=== PATIENT | female | born 1945 | race Caucasian/White ===

== ENCOUNTER 2016-10-30 13:50 | Observation (INO) | payer OTHER ==
--- NOTE | ~2016-10-30 | EKG ---
PATIENT: NANNETTE CARCAMO UNIT #: [id number] Ventricular Rate: 75 BPM Atrial Rate: 75 BPM P-R Interval: 144 ms QRS Duration: 78 ms Q-T Interval: 422 ms QTC Calculation(Bezet): 471 ms P [place]: 49 degrees Calculated R [place]: -25 degrees Calculated T [place]: 46 degrees Diagnosis Line: Normal sinus rhythm Diagnosis Line: Inferior infarct , age undetermined Diagnosis Line: Abnormal ECG Diagnosis Line: When compared with ECG of 31-OCT-2016 09:46, Diagnosis Line: (unconfirmed) Diagnosis Line: Inferior infarct is now Present Diagnosis Line: Confirmed by DEMARCUS MINER MD ([id number]) on Diagnosis Line: 11/03/2016 1:12:00 PM INTERPRETING MD: JUAN
--- NOTE | ~2016-10-30 | CO ---
Unit #: [id number] #: [id number] Patient: NANNETTE CARCAMO [id number] [facility]. [address] [place], [place] [address] [id number] I MR#: [id number] NAME: NANNETTE CARCAMO. ROOM: 563 Age: 71 Sex: F Admission Date: 10/30/2016 : 1945 Attending Physician: Alayna Sauer M.D. Primary Care Physician: Lissette Primary Care Physician Consultation Date: 10/31/2016 CONSULTATION REPORT PRIMARY CARE PHYSICIAN Dr. Cervantes. REASON FOR CONSULTATION Chest pain. HISTORY OF PRESENT ILLNESS This is a 71-year-old white female who has a history of coronary artery disease. Her last cath back in 2012 showed some nonobstructive CAD. Her ejection fraction was 60%, has hypertension, she is a diabetic, hyperlipidemia, who was originally brought into the emergency room because of having high blood sugars. The patient said she had been taking her medication consistently. It was glyburide 2 mg daily. Her blood sugars have stayed in the 300s and sometimes as high as 430. She was concerned so she came to the emergency room for further evaluation. She also complained of having some left upper anterior chest wall pain associated with the poorly controlled blood sugar. She described it as being sharp shooting in nature. She said she has periods of dizziness but denies any diaphoresis or shortness of breath. She has not had any cough, fever or chills, no abdominal or back pain. She denies any presyncope or syncopal episodes, paroxysmal nocturnal dyspnea or orthopnea. Cardiology was consulted to evaluate the patient's chest pain and she was admitted with poorly controlled diabetes mellitus. On interviewing the patient, she states that she has been having this intermittent chest pain off and on. She said that usually it starts in the left anterior chest wall but can radiate up to the neck/jaw. She does have some associated symptoms and shortness of breath but no distress. She denies any dizziness and no palpitations, denies any increased lower extremity edema. PAST MEDICAL HISTORY 1. Coronary artery disease. Her last cardiac cath in 2012 revealed 70% to 75% stenosis in the high first marginal branch and the ramus intermedius branch of the left circumflex coronary artery. Ejection fraction 60%. Patient was suggested to continue on medical management but she could have a stent placed if she continued to have chest pain. 2. Hypertension. 3. Diabetes mellitus type 2. 4. Hyperlipidemia. 5. Bipolar disorder. 6. History of depression and anxiety. Unit #: [id number] #: [id number] Patient: NANNETTE CARCAMO. EGS 2014 showed some gastritis, also found a large diverticulum of the distal esophagus. PAST SURGICAL HISTORY 1. Total abdominal hysterectomy. 2. Cataract surgery. 3. Left total hip surgery. HOME MEDICATIONS 1. Atorvastatin 10 mg p.o. daily. 2. Carvedilol 6.25 mg p.o. daily. 3. Duloxetine 60 mg p.o. daily. 4. Amaryl 2 mg p.o. daily. 5. Boniva 150 mg p.o. monthly. 6. Iron 325 mg p.o. daily. 7. Multivitamin one tablet daily. 8. Namenda 10 mg p.o. b.i.d. 9. Pantoprazole 40 mg p.o. daily. 10. Potassium chloride 10 mEq p.o. daily. ALLERGIES IV contrast dye, any iodine-containing products. SOCIAL HISTORY The patient has been a lifelong nonsmoker, no alcohol or illicit drug abuse. FAMILY HISTORY Noted to have coronary artery disease in her immediate family members. REVIEW OF SYSTEMS See details in HPI. PHYSICAL EXAMINATION GENERAL: On exam Ms. Carcamo is a 71-year-old female in no acute respiratory distress. She is awake, alert and oriented. VITAL SIGNS: Blood pressure is 125/69, heart rate is 74, respirations 18, temperature 98.0, O2 sats 96% on room air. HEART: S1, S2, regular rate and rhythm. No clicks, murmur or rubs. LUNGS: Diminished, otherwise clear. ABDOMEN: Soft, nontender. Positive bowel sounds present. No hepatosplenomegaly. EXTREMITIES: Pedal pulses are palpable. No pedal edema. DIAGNOSTIC STUDIES LABORATORY DATA: Glucose is 190, on admission it was 306, BUN 10, creatinine 0.9, eGFR is 65.3, sodium 138, potassium 4.0, chloride 105, CO2 23, calcium is 8.9, total protein 6.6, albumin 3.2, total bilirubin is 0.6, AST is 54, ALT 33, alkaline phosphatase is 153. WBCs 7.6, hemoglobin 13.7, hematocrit 42.2 and platelets 147. Initial cardiac enzymes: CK-MB is less than 1.0, troponin less than 0.05. Repeat cardiac enzymes: CK total is 34 and troponin less than 0.02, CK total is 33 and troponin less than 0.03. BNP is 39. Hemoglobin A1C is 8.0. INR is 1.0. Urinalysis 2+ leukocyte esterase, greater than 1000 glucose and 1.0 urobilinogen and 10 to 25 WBCs, 2+ bacteria. Urine culture pending. IMAGING: Chest x-ray shows no acute findings and no active disease. Unit #: [id number] #: [id number] Patient: NANNETTE CARCAMO CARDIOVASCULAR: EKG shows normal sinus rhythm with ventricular rate 80 beats per minute, left axis deviation. Q wave noted in inferior leads. Poor R-wave progression. IMPRESSION 1. Chest pain, history of coronary artery disease. Last cardiac cath 2012 showed a 70% stenosis in the ramus and at the origin. The left main, LAD and RCA were essentially normal with ejection fraction of 60%. 2. Hypertension. 3. Poorly controlled diabetes mellitus type 2. 4. Hyperlipidemia. 5. Reformed smoker. 6. Gastroesophageal reflux disease. PLAN 1. Cardiology consult to assist with evaluating the patient's chest pain. On interview and exam it seems that she is having some unstable angina. At this point since it has been four years since her last cardiac cath and it was mentioned that she eventually may need an angioplasty or stenting they would recommend for a heart catheterization to further evaluate for ischemic heart disease. 2. Will keep the patient on therapeutic dose of Lovenox 1 mg/kg subcu b.i.d. along with an aspirin 325 mg STAT and also nitrate, nitroglycerin paste 1 inch t.i.d. 3. Continue the patient on her Lipitor but increase it from 10 to 20 mg daily. 4. Obtain a fasting lipid profile and TSH and evaluate. 5. Patient does have an allergy to IV contrast. I will premedicate for the heart catheterization. 6. Discussed with the patient the risks and benefits of a heart catheterization which include a risk of bleeding, myocardial infarction, stroke and even . Patient verbalized understanding and agrees to proceed. 7. Continue with pre-cath orders. 8. Hospitalist is managing her poorly controlled diabetes mellitus. 9. On exam there are no signs or symptoms of acute congestive heart failure. 10. Further recommendations pending per Dr. Serrano. Thank you very much for allowing us to assist in her care. Dictated by... Michelle Padilla A.P.R.N. for Maritza Ye/fabiana TD: 10/31/2016 22:46 JOB #: [id number] Unit #: [id number] #: [id number] Patient: NANNETTE CARCAMO CONSULTATION REPORT Page 1 of 1 X Michelle Padilla APRN CONSULTATION REPORT
--- NOTE | ~2016-10-30 | CR72 ---
[facility] A Service of [facility] & [facility] RADIOLOGY TEXT RESULTS PATIENT: NANNETTE CARCAMO LOCATION: [place] [address]- : [birth year] UNIT #: [id number] AGE: [address]: Alayna Sauer MD SEX: F ORDER DR: [id number] [facility] [address] [place], [place] [address] [id number] I MR#: [id number] #: [id number] NAME: NANNETTE CARCAMO. : 1945 SEX: F STUDY DATE/TIME: 10/30/2016 15:20 UNIT: [facility] ROOM: [facility] STUDY DESCRIPTION: CR Chest Single View Portable Attending Physician: Alayna Sauer M.D. Ordering Physician: [facility] Douglas Cole Primary Care Physician: Primary Care Physician No MEDICAL IMAGING REPORT This report is preliminary unless electronic signature is present EXAM Portable chest HISTORY Chest pain for 2 weeks. FINDINGS The cardiac size and pulmonary vascularity are normal. No infiltrates or effusions. Old healed right upper rib fractures. Mild hypertrophic spurring upper and lower thoracic spine. IMPRESSION No acute findings and no active disease. Dictated by... Christoph Pedersen M.D. THIS IS AN ELECTRONICALLY VERIFIED REPORT Christoph Pedersen M.D. at 10/31/2016 11:10 PM DFL/psc TD: 10/30/2016 17:00 JOB #: [id number] MEDICAL IMAGING REPORT Page 1 of 1 COPY
--- NOTE | ~2016-10-30 | EKG ---
PATIENT: NANNETTE CARCAMO UNIT #: [id number] Ventricular Rate: 80 BPM Atrial Rate: 80 BPM P-R Interval: 114 ms QRS Duration: 70 ms Q-T Interval: 424 ms QTC Calculation(Bezet): 489 ms P [place]: 3 degrees Calculated R [place]: -40 degrees Calculated T [place]: 57 degrees Diagnosis Line: Normal sinus rhythm Diagnosis Line: Left axis deviation Diagnosis Line: Abnormal ECG Diagnosis Line: When compared with ECG of 30-OCT-2016 15:11, Diagnosis Line: (unconfirmed) Diagnosis Line: No significant change was found Diagnosis Line: Confirmed by BERNARD MONTANEZ MD ([id number]) on Diagnosis Line: 11/02/2016 8:44:04 AM INTERPRETING MD: TARIK NEWELL
--- NOTE | ~2016-10-30 | EKG ---
PATIENT: NANNETTE CARCAMO UNIT #: [id number] Ventricular Rate: 72 BPM Atrial Rate: 72 BPM P-R Interval: 146 ms QRS Duration: 78 ms Q-T Interval: 426 ms QTC Calculation(Bezet): 466 ms P [place]: 52 degrees Calculated R [place]: -35 degrees Calculated T [place]: 56 degrees Diagnosis Line: Normal sinus rhythm Diagnosis Line: Left axis deviation Diagnosis Line: Abnormal ECG Diagnosis Line: When compared with ECG of 28-DEC-2013 14:56, Diagnosis Line: No significant change was found Diagnosis Line: Confirmed by BERNARD MONTANEZ MD ([id number]) on Diagnosis Line: 11/02/2016 8:43:18 AM INTERPRETING MD: TARKI NEWELL
--- NOTE | ~2016-10-30 | HP ---
Unit #: [id number] #: [id number] Patient: NANNETTE CARCAMO [id number] [address] [address] [id number] I MR#: [id number] NAME: NANNETTE CARCAMO. ROOM: 96257 Age: 71 Sex: F Admission Date: 10/30/2016 : 1945 Attending Physician: Galina Lay M.D. Primary Care Physician: No Primary Care Physician HISTORY AND PHYSICAL CHIEF COMPLAINT High blood sugars. HISTORY OF PRESENT ILLNESS The patient is a 71-year-old female with history of diabetes mellitus, hypertension, brought to the emergency room complaining of high blood sugar. The patient stated the patient has been taking her medication, Glimepiride 2 mg daily. However, the blood sugar remains high. It started with 300 and now it is 430 today and that prompted her to come to the emergency room. The patient denies any change in the medications. The patient also complains of left upper chest pain associated with uncontrolled blood sugar. The pain is mainly sharp in nature, is intermittent and is not constant. She said it is nonradiating. The patient also complains of dizziness and denies any diaphoresis or shortness of breath. The patient denies any cough or abdominal pain. PAST MEDICAL HISTORY History of hypertension, diabetes, depression, bipolar disorder, dementia, hyperlipidemia, coronary artery disease status post PCI with 70 to 75% of the first marginal branch of the ramus intermedius branch of the left circumflex being treated medically. PAST SURGICAL HISTORY Total abdominal hysterectomy, cataract surgery and left total hip surgery. SOCIAL HISTORY The patient is living with her granddaughter and son, lifelong smoker, does not drink alcohol. FAMILY HISTORY Positive for coronary artery disease. ALLERGIES IV dye. HOME MEDICATION 1. Lipitor. 2. Calcium. 3. Magnesium. 4. Coreg. 5. Glimepiride. 6. Iron. 7. Multivitamins. 8. Namenda. Unit #: [id number] #: [id number] Patient: NANNETTE CARCAMO 9. KCl. 10. Iron. 11. Protonix. REVIEW OF SYSTEMS A 14-point review of systems performed and only pertinent positive findings are described above. Remaining are negative. PHYSICAL EXAMINATION GENERAL APPEARANCE: The patient is lying on a bed not in acute distress. VITAL SIGNS: Temperature 97.9. Pulse 82. Respiratory rate 16. Blood pressure 111/62. Sating 99% at room air. HEENT: Head: Atraumatic, normocephalic. ENT: Pupils equal, round, reacting to light and accommodation. Extraocular movements are intact. NECK: Supple. LUNGS: Decreased air entry at the bases. HEART: Regular rate and rhythm. Positive for murmur. ABDOMEN: Soft. Positive bowel sounds. EXTREMITIES: No cyanosis. No clubbing. NEUROLOGIC: Alert, awake, oriented. No gross focal motor deficit. DIAGNOSTIC STUDIES LABORATORY: pH 7.55, pCO2 25, pO2 98, bicarb 22, sating 97.8. Glucose 306, BUN 10, creatinine 0.9, sodium 132, potassium 4.2, chloride 101, bicarb 22, calcium 9.2, total protein 6.6, albumin 3.2, AST 54, ALT 33, alkaline phosphatase 153. BNP 39. Beta hydroxybutyrate 0.09. INR is one. Troponin less than 0.05. WBC 7.6, hemoglobin 14.3, hematocrit 43.7, platelets 152. CARDIOVASCULAR: EKG shows normal sinus rhythm with a left axis deviation. ASSESSMENT 1. Uncontrolled diabetes mellitus. 2. Chest pain. 3. Hypertension. PLAN To admit the patient to observation with telemetry. The patient will have serial troponins to rule out ischemia and Cardiology consult with Dr. Serrano, has seen in the past. Continue the sliding scale, check the hemoglobin A1c and continue with the glimepiride and might add another agent depending on the blood sugars and hemoglobin A1C. Repeat the labs again in the morning and further recommendations will follow. Dictated by Maritza Nair TD: 10/30/2016 17:49 JOB #: [id number] Unit #: [id number] #: [id number] Patient: NANNETTE CARCAMO HISTORY AND PHYSICAL Page 1 of 1 X X HISTORY AND PHYSICAL
--- NOTE | ~2016-10-30 | DS ---
Unit #: [id number] #: [id number] Patient: NANNETTE CARCAMO [id number] [address] [address] [id number] I MR#: [id number] NAME: NANNETTE CARCAMO ROOM: 563 Age: 71 Sex: F Admission Date: 10/30/2016 : 1945 Discharge Date: Attending Physician: Alayna Sauer M.D. Primary Care Physician: No Primary Care Physician DISCHARGE SUMMARY DISCHARGE DIAGNOSES 1. Unstable angina, status post cardiac cath, on medical management. 2. Diabetes mellitus type 2, uncontrolled. 3. Hypertension, uncontrolled. 4. History of bipolar. 5. Dementia. 6. Hyperlipidemia. 7. Coronary artery disease, status post (1) with 70% to 75% of first marginal branch of ramus treated medically in the past. CONSULTATION Dr. Hebert. PROCEDURE Cardiac cath. DIAGNOSTIC STUDIES LABORATORY: Glucose 212. Troponins negative. Creatinine 0.8. Hemoglobin normal. Urine cultures normal. TSH 1.53. LDL 86. IMAGING: Chest x-ray normal. CARDIOVASCULAR: EKG shows normal sinus rhythm. ALLERGIES Iodinated contrast dye. DISCHARGE MEDICATIONS 1. Cymbalta 60 p.o. daily. 2. Namenda 10 p.o. b.i.d. 3. Lipitor 20 daily. 4. Iron 325 daily. 5. Boniva 150 daily. 6. Multivitamin one tablet daily. 7. Aspirin 81 daily. 8. Protonix 40 daily. 9. Amaryl 2 mg p.o. daily. 10. Imdur ER 30 daily. HOSPITALIZATION COURSE A 71 year old admitted because of chest pain. Unstable angina: Patient is seen by Dr. Hebert. Patient had cardiac cath which shows 60% stenosis ramus origin obstruction with normal ejection Unit #: [id number] #: [id number] Patient: NANNETTE CARCAMO fraction. Patient will continue with aspirin and Lipitor. Medical management only. Diabetes mellitus 2: Uncontrolled. Patient will receive Levemir. She will continue with Amaryl at home. Hypertension: Uncontrolled. Continue with Imdur. History of smoking: Advised to quit. DISPOSITION Discharge home. FOLLOWUP 1. Follow with family physician in one week time. 2. Follow with Dr. Serrano on December 23, 2016 at 11 a.m. Apparently, patient's son is not allowing her to come back to his home. student worker is on case and currently she is homeless. I will discharge her once prison has been arranged. Dictated by... Alayna Sauer M.D. Robert TD: 11/02/2016 14:05 JOB #: [id number] DISCHARGE SUMMARY Page 1 of 1 X Alayna Sauer MD X DISCHARGE SUMMARY
[~2016-10-30 13:50] MED LIST: ACETAMINOPHEN PO; ALPRAZOLAM PO; AMARYL2 MG PO; AMBIEN PO; ARICEPT PO; ASPIRIN EC81 M1 PO; ASPIRIN PO; ASPIRIN325 M1 PO; ASPIRIN81 M2 PO; ASPIRIN81 MG PO; ATARAX PO; BACTROBAN22 GM TP; BENADRYL25 M1 PO; CARVEDILOL3.125 MG PO; COLACE PO; COMPAZINE5 MG PO; COREG PO; COREG3.125 MG PO; CYMBALTA; CYMBALTA PO; DONEPEZIL HCL10 MG PO; DULOXETINE HCL30 MG PO; DYAZIDE 37.5/251 CAP PO; DYRENIUM100 MG; FETZIMA40 MG PO; FIORICET 50-321 EACH PO; FLEXERIL10 M1 PO; FLEXERIL10 MG PO; GLIMEPIRIDE2 MG PO; GLUCOPHAGE XR500 MG PO; GLUCOPHAGE500 M1 PO; IBUPROFEN800 MG PO; K-LOR20 MEQ PO; LAMICTAL PO; LAMOTRIGINE200 MG PO; LANSOPRAZOLE30 M2 PO; LISINOPRIL10 MG PO; METFORMIN HCL500 M1 PO; METFORMIN PO; MICRO-K10 MEQ PO; MILK OF MAGNESIA PO; MULTIPLE VITAMI1 T11 PO; MULTIPLE VITAMI1 T13 PO; NAMENDA10 MG PO; NAMENDA5 MG PO; NAPROXEN PO; NEXIUM PO; NITROGLYGERIN0.4 MG SL; NITROSTAT0.4 MG SL; OLANZAPINE10 MG PO; OLANZAPINE20 MG PO; OLANZAPINE5 MG PO; ORUDIS75 M1 PO; PATIENT'S PHARMACY; PEPCID40 MG PO; PERCOCET 5-3251 TAB PO; PHENERGAN PO; POTASSIUM CHLO20 ME1 PO; PREDNISONE50 MG PO; PRISTIQ PO; PRISTIQ100 MG PO; PROMETHAZINE HC25 MG PO; REGLAN PO; SIMVASTATIN20 MG PO; TOPAMAX PO; VICODIN 5/1 TAB 5/50 PO; VITAMIN B 12 PO; VITAMIN B-12250 MCG PO; VITAMIN D-32000 UNI2 PO; VITAMIN D50000 UNIT PO; VOLTAREN50 MG PO; VOLTAREN75 MG PO; XANAX XR PO; ZANTAC PO; ZESTRIL10 M1 PO; ZOCOR PO; ZOCOR20 MG PO; ZOFRAN PO; ZYPREXA PO; ZYPREXA10 MG PO; ZYPREXA20 MG PO; ZYRTEC PO
[2016-10-30 15:40] LABS: BASOPHIL% 0.6 % (0-2.5); EOSINOPHIL# 0.1 X10e3 (0-0.7); EOSINOPHIL% 1.3 % (0.0-7.0); HEMATOCRIT 43.7 % (35.0-45.0); HEMOGLOBIN 14.3 gm/dL (12.0-16.0); MEAN CELL VOLUME 87.8 FL (83-96); MEAN CORPUSCULAR HEMOGLOBIN 28.7 PG (28-34); MEAN CORPUSCULAR HGB CONC 32.7 g/dL (30-36); MEAN PLATELET VOLUME 9.5 FL (6.5-11.5); MONOCYTE# 0.5 X10e3 (0-1.0); MONOCYTE% 7.2 % (3.0-12.0); NEUTROPHIL# 4.8 X10e3 (1.5-7.1); NEUTROPHIL% 63.9 % (40-75); PLATELET COUNT 152 X10e3 (140-420); RED BLOOD COUNT 4.98 X10e (3.90-5.30); WHITE BLOOD COUNT 7.6 X10e3 (4.0-10.5)
[2016-10-30 15:42] LABS: DIFF IND NO
[2016-10-30 15:54] LABS: ALBUMIN SERUM 3.2 g/dL (3.5-5.0); BETA HYDROXYBUTYRATE 0.09 MMOL/L (0.02-0.27); BILIRUBIN, DIRECT 0.2 mg/dL (0.0-0.2); BILIRUBIN,INDIRECT 0.4 mg/dL (0.0-0.9); BILIRUBIN,TOTAL 0.6 mg/dL (0.2-2.0); BUN/CREATININE RATIO 11.11; CALCIUM SERUM 9.2 mg/dL (8.4-10.2); CREATININE SERUM 0.9 mg/dL (0.6-1.4); GLOM FILT RATE Estimated 65.3 mL/min (>60); POTASSIUM 4.2 mmol/L (3.5-5.1); PROTEIN TOTAL SERUM 6.6 g/dL (6.0-8.3)
[2016-10-30 15:57] LABS: PARTIAL THROMBOPLASTIN TIME 25.5 SECONDS (23.5-31.3); PROTHROMBIN TIME (PATIENT) 10.7 SECONDS (9.6-11.5)
[2016-10-30 16:15] LABS: ARTERIAL BLD GAS O2 SATURATION 97.8 % (90.0-100.0); ARTERIAL BLOOD GAS ART SITE RIGHT BRACHIAL; ARTERIAL BLOOD GAS CARBOXY HB 0.7 %sat (0.0-9.0); ARTERIAL BLOOD GAS HCO3 22.6 mmol/L; ARTERIAL BLOOD GAS MET HB 0.5 %sat (0.0-2.0); ARTERIAL BLOOD GAS PCO2 25.5 mmHg (35.0-45.0); ARTERIAL BLOOD GAS pH 7.555 (7.350-7.450); ARTERIAL DRAW? YES
[2016-10-30 16:25] LABS: POC - CKMB <1.0 ng/mL (0.0-7.9); POC - TROPONIN <0.05 ng/mL (<=0.05)
[2016-10-30 16:45] LABS: URINE SOURCE CLEAN CATCH
[2016-10-30 16:57] LABS: URINE APPEARANCE CLEAR; URINE BILIRUBIN NEG (NEG); URINE BLOOD NEG (NEG); URINE COLOR DK YELLOW; URINE GLUCOSE >1000 MG/DL (NEG); URINE KETONE TRACE (NEG); URINE LEUKOCYTE ESTERASE 2+ (NEG); URINE NITRATE NEG (NEG); URINE PROTEIN NEG (NEG); URINE SPECIFIC GRAVITY 1.026 (1.003-1.035)
[2016-10-30 17:00] LABS: CULTURE INDICATED? YES; U HYALINE CASTS AUWI 0-2 /[LPF]; URINE BACTERIA AUWI 2+ (NEGATIVE); URINE SQUAMOUS EPITHELIAL CELL OCC /[HPF]
[2016-10-30] MEDS ORDERED: ATORVASTATIN CA10 MG PO (17:59)
[2016-10-30] MEDS ORDERED: COREG6.25 M1 PO (18:02)
[2016-10-30] MEDS ORDERED: AMARYL2 MG PO (18:03)
[2016-10-30] MEDS ORDERED: DULOXETINE HCL60 M1 PO (18:03)
[2016-10-30] MEDS ORDERED: BONIVA150 MG PO (18:04)
[2016-10-30] MEDS ORDERED: IRON325 MG PO (18:05)
[2016-10-30] MEDS ORDERED: NAMENDA10 MG PO (18:06)
[2016-10-30] MEDS ORDERED: MULTI VITAMIN1 EACH PO (18:06)
[2016-10-30] MEDS ORDERED: PANTOPRAZOLE SO40 MG PO (18:07)
[2016-10-30] MEDS ORDERED: POTASSIUM CHLO10 MEQ PO (18:07)
[2016-10-31 01:03] LABS: CK TOTAL 34 IU/L (26-140)
[2016-10-31 07:47] LABS: BASOPHIL% 0.6 % (0-2.5); EOSINOPHIL# 0.2 X10e3 (0-0.7); EOSINOPHIL% 2.3 % (0.0-7.0); HEMATOCRIT 42.2 % (35.0-45.0); HEMOGLOBIN 13.7 gm/dL (12.0-16.0); LYMPHOCYTE# 2.7 X10e3 (1.0-3.5); LYMPHOCYTE% 34.8 % (17.0-45.0); MEAN CELL VOLUME 87.7 FL (83-96); MEAN CORPUSCULAR HEMOGLOBIN 28.4 PG (28-34); MEAN CORPUSCULAR HGB CONC 32.4 g/dL (30-36); MEAN PLATELET VOLUME 9.2 FL (6.5-11.5); MONOCYTE# 0.6 X10e3 (0-1.0); MONOCYTE% 8.4 % (3.0-12.0); NEUTROPHIL# 4.1 X10e3 (1.5-7.1); NEUTROPHIL% 53.9 % (40-75); PLATELET COUNT 147 X10e3 (140-420); RED BLOOD COUNT 4.81 X10e (3.90-5.30); RED CELL DISTRIBUTION WIDTH 13.8 % (11.0-15.5); WHITE BLOOD COUNT 7.6 X10e3 (4.0-10.5)
[2016-10-31 07:50] LABS: DIFF IND NO
[2016-10-31 08:28] LABS: BUN/CREATININE RATIO 11.11; CALCIUM SERUM 8.9 mg/dL (8.4-10.2); CREATININE SERUM 0.9 mg/dL (0.6-1.4); GLOM FILT RATE Estimated 65.3 mL/min (>60)
[2016-10-31 09:02] LABS: CK TOTAL 35 IU/L (26-140)
[2016-10-31 11:34] LABS: CK TOTAL 33 IU/L (26-140)
[2016-10-31 12:18] LABS: CHOLESTEROL 171 mg/dL (0-200); HDL CHOLESTEROL 61 mg/dL (35-95); LDL CHOLESTEROL 86 mg/dL (-130); LDL/HDL RATIO 1 RATIO (0-4); TRIGLYCERIDES 119 mg/dL (10-160)
[2016-11-01 07:08] LABS: HEMOGLOBIN 14.3 gm/dL (12.0-16.0); MEAN CELL VOLUME 88.1 FL (83-96); MEAN CORPUSCULAR HEMOGLOBIN 28.6 PG (28-34); MEAN CORPUSCULAR HGB CONC 32.5 g/dL (30-36); MEAN PLATELET VOLUME 9.7 FL (6.5-11.5); RED CELL DISTRIBUTION WIDTH 13.8 % (11.0-15.5); WHITE BLOOD COUNT 8.4 X10e3 (4.0-10.5)
[2016-11-01 07:19] LABS: PARTIAL THROMBOPLASTIN TIME 22.6 SECONDS (23.5-31.3)
[2016-11-01 07:42] LABS: BUN/CREATININE RATIO 13.75; CREATININE SERUM 0.8 mg/dL (0.6-1.4); GLOM FILT RATE Estimated 75.3 mL/min (>60); POTASSIUM 4.3 mmol/L (3.5-5.1)
[2016-11-02 07:32] LABS: CREATININE SERUM 0.8 mg/dL (0.6-1.4); GLOM FILT RATE Estimated 75.3 mL/min (>60)
[2016-11-02] MEDS ORDERED: ASPIRIN81 MG PO (13:46)
[2016-11-02] MEDS ORDERED: IMDUR-ER30 MG PO (13:48)
== END 2016-11-02 14:29 | disposition home or self-care (01) ==
LOC: CED 13:50 → CEDOF 17:00 → C5C 17:48 → CED 17:48 → CEDOF 17:48 → C5C 19:52 → CEDOF 19:52 → C5C 10-31 07:39
PROVIDERS: Emergency Medicine; Internal Medicine; Internal Medicine Cardiovascular Disease
DX: I25.110 Atherosclerotic heart disease of native coronary artery with unstable angina pectoris (principal); I10 Essential (primary) hypertension; E11.65 Type 2 diabetes mellitus with hyperglycemia; I11.9 Hypertensive heart disease without heart failure; F03.90 Unspecified dementia, unspecified severity, without behavioral disturbance, psychotic disturbance, mood disturbance, and anxiety; E78.5 Hyperlipidemia, unspecified; F31.9 Bipolar disorder, unspecified; Z79.899 Other long term (current) drug therapy; Z79.84 Long term (current) use of oral hypoglycemic drugs; Z82.49 Family history of ischemic heart disease and other diseases of the circulatory system; Z91.041 Radiographic dye allergy status; Z90.710 Acquired absence of both cervix and uterus
CPT/HCPCS: 36415; 36600; 71010; 80048; 80061; 80076; 81003; 82010; 82550; 82553; 82565; 82803; 82947; 83036; 83880; 84443; 84484; 85025; 85027; 85610; 85730; 87086; 93005; 94760; 96360; 99285; C1769; C1887; C1894; G0378; J1644; J1815; J2250; J3010

== ENCOUNTER 2016-12-01 16:00 | Observation (INO) | payer OTHER ==
--- NOTE | ~2016-12-01 | DS ---
Unit #: [id number] #: [id number] Patient: NANNETTE CARCAMO [id number] [address] [address] [id number] I MR#: [id number] NAME: NANNETTE CARCAMO ROOM: 556 Age: 71 Sex: F Admission Date: 12/01/2016 : 1945 Discharge Date: 12/02/2016 Attending Physician: Alayna Sauer M.D. Primary Care Physician: Bekah Cervantes M.D. DISCHARGE SUMMARY ADMISSION DIAGNOSES 1. Atypical chest pain with history of nonobstructive coronary artery disease. Pain reproducible with palpation chest wall. 2. 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 3. Type 2 diabetes mellitus. 4. Hypertension. 5. Hyperlipidemia. 6. Depression. DISCHARGE DIAGNOSES 1. Atypical chest pain status post cardiac cath procedure 10/31/16 with plan for medical management. 2. Costochondritis. 3. Type 2 diabetes mellitus. 4. Hypertension. 5. History of bipolar disorder. 6. Dementia. CONSULTANTS Bonnie Serrano M.D., cardiology. PROCEDURES None. DIAGNOSTIC STUDIES IMAGING: CT of the chest with contrast. Impression - Suboptimal opacification of pulmonary arteries. No convincing evidence of pulmonary embolus. No definite acute intrathoracic abnormality identified. CT of the abdomen and pelvis with IV contrast. Impression - No acute findings in the abdomen or pelvis. Fatty infiltration of the liver. Tbsn-aj-nuxzqvfo venous collaterals in the abdomen suggesting portal venous hypertension. Normal appendix. Cholecystectomy and hysterectomy. LABORATORY: WBC 7.9, hemoglobin 13.9, hematocrit 41.9, platelets 142,000. Sodium 140, potassium 3.6, chloride 110, CO2 24, glucose 148, BUN 12, creatinine 0.8, calcium 8.4. Troponin less than 0.03, less than 0.05, less than 0.05. CK total 43. INR 1.1. CARDIOVASCULAR: Twelve-lead EKG report. Normal sinus rhythm. Normal ECG. DISCHARGE MEDICATIONS 1. Ferrous sulfate 65 mg p.o. daily. Unit #: [id number] #: [id number] Patient: NANNETTE CARCAMO 2. Boniva 150 mg p.o. monthly. 3. Multivitamin with minerals 1 tab p.o. daily. 4. Aspirin 81 mg daily p.o. daily. 5. Advil 200 mg p.o. q.6 hours p.r.n. pain. Take with food. 6. Pantoprazole sodium 40 mg p.o. daily. 7. Calcium magnesium plus D tab 1 p.o. daily. 8. K-Dur 20 mEq p.o. b.i.d. 9. Amaryl 2 mg p.o. daily. 10. Imdur ER 30 mg p.o. daily. 11. Vitamin B12 1 mL subcu month. 12. Duloxetine 60 mg p.o. daily. 13. Coreg 6.25 mg p.o. daily. 14. Namenda 10 mg p.o. b.i.d. 15. Lipitor 20 mg p.o. at bedtime. DISCHARGE INSTRUCTIONS 1. supply service worker has been asked to consult with the patient prior to discharge given the patient has verbalized concern regarding safety at home. Therefore, an APS referral pending at this time. 2. The patient will be discharged after seen by the social work associate if safe discharge plan confirmed today. 3. The patient is to continue constant carbohydrate diet and may have activity as tolerated. 4. The patient is to call and schedule followup with her primary care physician, Dr. Bekah Cervantes, in 5-7 days to follow up on costochondritis. HOSPITAL COURSE The patient is a 71-year-old female who presented to [facility] on the date of admission with complaints of chest pain. She was recently admitted to this facility on 10/30/16 for chest pain and underwent a cardiac catheterization, which showed 60% stenosis of the ramus with normal ejection fraction, per the previous discharge summary information. The patient's complaints began approximately 3 weeks ago when she began to develop left-sided chest pain radiating to the left neck and left arm. Cardiac enzymes and EKGs in the emergency department did not reveal ischemia. She was treated with a GI cocktail without relief. She was admitted to the hospital for further cardiac evaluation and management. The patient was evaluated by Dr. Serrano who noted and confirmed the patient's chest well tenderness. She also confirmed negative cardiac enzymes, as well as unremarkable EKG findings. Given the patient's clinical symptomatology, the ability to reproduce left chest wall pain with light palpation at the left sternal border, the patient has been cleared per her and Dr. Sauer for discharge today. Upon discussion of discharge with the patient, she confirms that she is staying with her son. It was noted at the time of discharge from her last admission note of the possibility of homelessness. Again, the social work associate will see the patient prior to discharge today to confirm safe discharge plan. NOTE: This patient has been discussed With Dr. Sauer. Total time spent on this discharge, including evaluation and discussion with the patient, was 37 minutes. Dictated by... Laura Pope A.P.R.N. for Unit #: [id number] #: [id number] Patient: CARLOS ALBERTONANNETTE Jonas Maritza Churchill/alexandra TD: 12/03/2016 13:39 JOB #: [id number] DISCHARGE SUMMARY Page 1 of 1 X Laura Pope APRN X DISCHARGE SUMMARY
--- NOTE | ~2016-12-01 | CO ---
Unit #: [id number] #: [id number] Patient: NANNETTE CARCAMO [id number] [facility]. [address] [place], [place] [address] [id number] I MR#: [id number] NAME: NANNETTE CARCAMO. ROOM: 55 Age: 71 Sex: F Admission Date: 12/01/2016 : 1945 Attending Physician: Alayna Sauer M.D. Primary Care Physician: Bekah Cervantes M.D. Consultation Date: 12/02/2016 CONSULTATION REPORT PRIMARY CARE PHYSICIAN Dr. Cervantes. REASON FOR CONSULTATION Atypical chest pain. HISTORY OF PRESENT ILLNESS This is a 71-year-old female, who was evaluated by Cardiology in 10/2016 for chest pain. She has a prior history of coronary artery disease with cardiac cath in 2012, which showed 70% to 75% blockage of her first marginal and intermedius with an EF of 60%. At that time, it was decided to medically manage. On 11/01/2016, she had a cardiac cath, which revealed 60% ramus near ostium, normal left main, normal LAD, normal left circumflex, normal RCA, and LVEF of 60%. She also has a history of hypertension, diabetes mellitus, hyperlipidemia, bipolar disorder, depression, and anxiety. She presented to the ER yesterday evening with reports of consistent chest pain, described as soreness in her midsternal and left chest area. She states that the pain has worsened with movement. Her chest is tender with palpation. She also reports right groin lower abdominal pain, tender to the touch. We were asked to evaluate her for her chest pain. PAST MEDICAL HISTORY 1. Coronary artery disease, status post cardiac catheterization on 11/01/2016, which revealed 60% stenosis in the ramus near ostium. 2. Hypertension. 3. Diabetes mellitus. 4. Hyperlipidemia. 5. Bipolar disorder. 6. Depression. 7. Anxiety. 8. Cardiac catheterization in 2012, 70% to 75% first marginal and intermedius with EF 60%. 9. EGD in 2014 showed large diverticulum in the distal esophagus. PAST SURGICAL HISTORY 1. Total abdominal hysterectomy. 2. Cataract surgery. 3. Left total hip surgery. 4. Cardiac catheterization in 2012 and in 10/2016. 5. EGD in 2014. ALLERGIES Unit #: [id number] #: [id number] Patient: NANNETTE CARCAMO Oral and IV dye contrast, which cause itching and rash. HOME MEDICATIONS Atorvastatin calcium 20 mg p.o. daily, duloxetine 60 mg p.o. daily, Amaryl 2 mg p.o. daily, Boniva 150 mg p.o. monthly, iron 65 mg p.o. daily, multivitamin one tablet daily, Namenda 10 mg p.o. b.i.d., pantoprazole 40 mg p.o. daily, Imdur ER 30 mg p.o. daily, Cymbalta 60 mg p.o. twice a day, calcium, magnesium +D tablet 1 tab p.o. once a day, Coreg 6.25 mg p.o. daily, K-Dur 10 mEq p.o. daily, vitamin B12 one ml subcu once a month. SOCIAL HISTORY The patient is a lifelong nonsmoker. She denies alcohol or illicit drug abuse. She currently lives at home. FAMILY HISTORY Denies family history of premature coronary artery disease. REVIEW OF SYSTEMS Otherwise negative except for what was stated in the HPI. PHYSICAL EXAMINATION VITAL SIGNS: Temperature 97.9, heart rate 81, respiratory rate 16, blood pressure 136/71. Height 64 inches and weight 85.8 kg. GENERAL: Alert and oriented 71-year-old female, in bed, in no acute distress. HEENT: Head is atraumatic and normocephalic. Pupils are equal and round. Mucous membranes are moist. NECK: Supple. Trachea is midline. Negative for JVD. LUNGS: Clear to auscultation. Nonlabored respirations. CARDIOVASCULAR: S1 and S2. Regular rate and rhythm. No significant murmurs, rubs, or gallops. ABDOMEN: Soft, nontender, and nondistended. EXTREMITIES: Pulses are palpable. No pedal edema. No cyanosis. NEUROLOGIC: Alert and oriented x3. Moves all extremities equally and follows commands without difficulty. DIAGNOSTIC STUDIES LABORATORY RESULTS: Sodium 140, potassium 3.6, chloride 110, BUN 12, creatinine 0.8, glucose 148. AST 33, ALT 20, alkaline phosphatase 128. Hemoglobin 13.6, hematocrit 41.9, white blood cell count 7.9, and platelets 142. Point of care troponin less than 0.05 and repeat troponin less than 0.03. IMAGING STUDIES: CT of the abdomen and pelvis showed no acute findings. There was fatty infiltration of the liver and mild to moderate venous collaterals in the abdomen suggesting portal venous hypertension. CT of the chest was negative for pulmonary embolus. CARDIOVASCULAR STUDIES: EKG revealed normal sinus rhythm with a ventricular rate of 90 and nonspecific T-wave abnormalities. ASSESSMENT 1. Atypical chest pain. 2. Chest wall tenderness. 3. Single vessel coronary artery disease. 4. Hypertension. 5. Diabetes mellitus. 6. Hyperlipidemia. Unit #: [id number] #: [id number] Patient: NANNETTE CARCAMO 7. Bipolar disorder. 8. Depression and anxiety. PLAN Her chest pain is atypical with chest wall tenderness. Cardiac enzymes and EKGs were unremarkable. She has cardiac catheterization on the . No further ischemic workup plans. It is okay to discharge this patient from a cardiac standpoint. Thank you for asking us to see this patient. We appreciate the consult. Dictated by... Elma Lara APRN for Maritza Ye TD: 12/03/2016 07:06 JOB #: [id number] CONSULTATION REPORT Page 1 of 1 X X CONSULTATION REPORT
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
--- NOTE | ~2016-12-01 | CT2 ---
[facility] A Service [facility] RADIOLOGY TEXT RESULTS PATIENT: NANNETTE CARCAMO LOCATION: [place] [address] : [birth year] UNIT #: [id number] AGE: [address]: Alayna Sauer MD SEX: F ORDER DR: [id number] [facility] [address] [place], [place] [address] [id number] I MR#: [id number] Acc #: [id number] NAME: NANNETTE CARCAMO. : 1945 SEX: F STUDY DATE/TIME: 12/01/2016 17:08 UNIT: CEDOF ROOM: 79671 STUDY DESCRIPTION: CT Abd and Pelv W Cont Attending Physician: Helen Mcdonnell M.D. Ordering Physician: Laney Quezada P.A.-C. Primary Care Physician: Bekah Cervantes M.D. MEDICAL IMAGING REPORT This report is preliminary unless electronic signature is present EXAM CT abdomen and pelvis with IV contrast HISTORY Abdomen pain for [address] exam was performed with one or more of the following radiation dose reduction techniques: automatic exposure control, adjustment of mA and/or kV according to patient size, and iterative reconstruction. FINDINGS CT abdomen and pelvis was performed with IV contrast. CT ABDOMEN: Diffuse fatty infiltration of the liver. Postop change at the EG junction versus developmental diverticulum at the EG junction, stable compared to 11/03/2012. Mild venous collaterals in the abdomen, could reflect portal venous hypertension. No hepatic mass or biliary dilatation. Cholecystectomy. Spleen measures 13 cm in length. Normal caliber abdominal aorta. No inflammatory changes. No bowel dilatation. Normal appendix. No free fluid. CT PELVIS: Hysterectomy. Urinary bladder is unremarkable. Streak artifact from left hip prosthesis. No bowel dilatation. IMPRESSION 1. No acute findings in the abdomen or pelvis. 2. Fatty infiltration of the liver. 3. Oxfs-bs-dwxnnvtk venous collaterals in the abdomen suggesting portal venous hypertension. 4. Normal appendix. 5. Cholecystectomy and hysterectomy. [facility] A Service [facility] RADIOLOGY TEXT RESULTS PATIENT: NANNETTE CARCAMO LOCATION: [place] [address] : [birth year] UNIT #: [id number] AGE: [address]: Alayna Sauer MD SEX: F ORDER DR: Dictated by... Christoph Pedersen M.D. THIS IS AN ELECTRONICALLY VERIFIED REPORT Christoph Pedersen M.D. at 12/02/2016 2:35 PM DFL/miranda TD: 12/02/2016 00:28 JOB #: [id number] MEDICAL IMAGING REPORT Page 1 of 1 COPY
--- NOTE | ~2016-12-01 | CT55 ---
[facility] A Service [facility] RADIOLOGY TEXT RESULTS PATIENT: NANNETTE CARCAMO LOCATION: [place] [address] : [birth year] UNIT #: [id number] AGE: [address]: Alayna Sauer MD SEX: F ORDER DR: [id number] [facility] [address] [place], [place] [address] [id number] I MR#: [id number] Acc #: [id number] NAME: NANNETTE CARCAMO. : 1945 SEX: F STUDY DATE/TIME: 12/01/2016 18:25 UNIT: CEDOF ROOM: 13533 STUDY DESCRIPTION: CT Chest W Con Attending Physician: Helen Mcdonnell M.D. Ordering Physician: Laney Quezada P.A.-C. Primary Care Physician: Bekah Cervantes M.D. MEDICAL IMAGING REPORT This report is preliminary unless electronic signature is present EXAM CT chest with contrast HISTORY Chest pain for over a month. FINDINGS Axial images performed through the chest following IV contrast. 3-D coronal and sagittal reconstructed images reviewed at a workstation. This CT exam was performed with one or more of the following radiation dose reduction techniques: Automatic exposure control, adjustment of mA and/or kV according to patient size, and iterative reconstruction. The pulmonary parenchyma appears normal. Trachea and bronchi unremarkable. No effusions. Suboptimal opacification of the pulmonary arteries but no evidence of pulmonary embolus. Aorta free of dissection or aneurysm. Heart size within normal limits. Calcified and noncalcified mediastinal nodes suggest old granulomatous disease. Upper abdomen demonstrates a air-containing structure off the proximal stomach at the GE junction could represent an epiphrenic or gastric diverticulum. Osseous structures show mild diffuse degenerative changes. Thoracic inlet unremarkable. There are several old healed right-sided rib fractures. IMPRESSION Suboptimal opacification of the pulmonary arteries but no convincing evidence of pulmonary embolus. No definite acute intrathoracic abnormality identified. Dictated by.Moo Atkinson M.D. [facility] A Service of [facility] RADIOLOGY TEXT RESULTS PATIENT: NANNETTE CARCAMO LOCATION: [place] [address] : [birth year] UNIT #: [id number] AGE: [address]: Alayna Sauer MD SEX: F ORDER DR: THIS IS AN ELECTRONICALLY VERIFIED REPORT Sierra Atkinson M.D. at 12/02/2016 10:09 AM Erinn TD: 12/02/2016 00:12 JOB #: [id number] MEDICAL IMAGING REPORT Page 1 of 1 COPY
--- NOTE | ~2016-12-01 | HP ---
Unit #: [id number] #: [id number] Patient: NANNETTE CARCAMO [id number] [address] [place], [place] [address] [id number] I MR#: [id number] NAME: NANNETTE CARCAMO. ROOM: 556 Age: 71 Sex: F Admission Date: 12/01/2016 : 1945 Attending Physician: Helen Mcdonnell M.D. Primary Care Physician: Bekah Cervantes M.D. HISTORY AND PHYSICAL CHIEF COMPLAINT Atypical chest pain. HISTORY This 71-year-old female with nonobstructive coronary artery disease, hypertension, AODM, is admitted for atypical chest pain. The patient was last admitted to this facility 10/30/2016 for chest pain. Underwent a cardiac catheterization showing per discharge summary 60% stenosis of the ramus with normal ejection fraction. I am unable to pull up the formal cardiac catheterization unfortunately. The patient states that three weeks ago she began to experience constant left chest pain radiating to the left neck and left arm, which did wax and wane, worse with dry heaving and walking. Notes nausea, vomiting, headache with the above. Presents back to this emergency department where cardiac enzymes and EKGs did not reveal ischemia. In the ER she was given aspirin, some Benadryl before her CT scan, morphine, Zofran and a GI cocktail. GI cocktail did not help her pain. CT scan was somewhat suboptimal but negative for a PE. PAST MEDICAL HISTORY 1. Nonobstructive coronary artery disease with recent cardiac catheterization. I do not have a formal report. Per the discharge summary there is mention of 60% ramus stenosis and normal ejection fraction. 2. Hypertension. 3. AODM. 4. Hyperlipidemia. 5. Depression. 6. EGD revealing gastritis and large diverticulum. 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 7. Total abdominal hysterectomy. 8. Cataract extraction. 9. Left total hip replacement. 10. Cholecystectomy. ALLERGIES Iodine but patient did receive IV dye here in the ER, as well as with a previous cardiac catheterization without problems. DISCHARGE MEDICATIONS 10/30/2016 included Cymbalta 60 mg daily; Namenda 10 mg b.i.d.; Lipitor 20 mg daily; iron tablets; Boniva 150 mg; multivitamin; aspirin, which the patient is not taking due to epistaxis; Protonix 40 mg daily; Amaryl 2 mg Unit #: [id number] #: [id number] Patient: NANNETTE CARCAMO daily; Imdur ER 30 mg daily. FAMILY HISTORY CAD. SOCIAL HISTORY The patient lives with her son, is a lifelong nonsmoker, seldom drinks alcohol. REVIEW OF SYSTEMS Notable for chest pain, some vomiting, headaches, CAD, hypertension, diabetes, hyperlipidemia, depression, large diverticulum on EGD, hysterectomy, cataract extraction, cholecystectomy, left hip surgery. All other systems were reviewed and otherwise negative. PHYSICAL EXAMINATION GENERAL: Pleasant, moderately obese, 71-year-old female currently in no acute distress. VITAL SIGNS: Temperature 97.5, pulse 98, respirations 16, blood pressure 171/85, O2 saturations 90% on room air. HEENT: Eyes - PERRLA. Extraocular muscles are intact. Pharynx is benign edentulous. NECK: Supple without adenopathy or thyromegaly. CHEST: Clear. There is reproducible chest wall tenderness on exam. CARDIAC: Normal S1 and S2 without S3, S4 or murmur. ABDOMEN: Bowel sounds are present. Mild epigastric tenderness. No hepatosplenomegaly or masses. EXTREMITIES: Without clubbing, cyanosis or edema. Pedal pulses are present. Patient has experienced a little bit of calf pain on the right went I perform a Antoine test. NEUROLOGIC: Patient is awake, alert, and oriented. Cranial nerves are intact. Equal strength throughout. DIAGNOSTIC STUDIES LABORATORY STUDIES: Hematocrit 41.8, normal white count, platelet count, and coags. SMA 12 - glucose 160, albumin 3.3, alk phos 128. Cardiac markers - negative. IMAGING STUDIES: CT scan of the chest suboptimal but no PE. Fatty liver noted. Mild to moderate portal venous hypertension. CARDIOLOGY STUDIES: EKG - sinus rhythm rate 92, left axis deviation. ASSESSMENT 1. Atypical chest pain in patient with nonobstructive coronary artery disease. Her pain does seem to be reproducible with palpation of the chest wall. Was not improved with GI cocktail. 2. History of esophageal diverticulum and questionable Ugarte. 3. AODM. 4. Hypertension. 5. Hyperlipidemia. 6. Depression. PLANS 1. Very low dose nonsteroidal anti-inflammatory drugs. 2. Restart low dose aspirin. 3. Consider GI workup as an outpatient. 4. Cardiology to see. Unit #: [id number] #: [id number] Patient: NANNETTE CARCAMO 5. Serial cardiac enzymes. 6. Dopplers of the legs given right calf pain. Dictated by Maritza Dos Santos/tre TD: 12/02/2016 05:03 JOB #: [id number] HISTORY AND PHYSICAL Page 1 of 1 X Helen Mcdonnell MD X HISTORY AND PHYSICAL
--- NOTE | ~2016-12-01 | EKG ---
PATIENT: NANNETTE CARCAMO UNIT #: [id number] Ventricular Rate: 92 BPM Atrial Rate: 92 BPM P-R Interval: 142 ms QRS Duration: 78 ms Q-T Interval: 370 ms QTC Calculation(Bezet): 457 ms P [place]: 51 degrees Calculated R [place]: -23 degrees Calculated T [place]: 67 degrees Diagnosis Line: Normal sinus rhythm Diagnosis Line: Normal ECG Diagnosis Line: When compared with ECG of 01-NOV-2016 05:58, Diagnosis Line: No significant change was found Diagnosis Line: Confirmed by JOSE LOPEZ MD ([id number]) on Diagnosis Line: 12/02/2016 6:50:19 AM INTERPRETING DEMI VILLAVICENCIO
--- NOTE | ~2016-12-01 | US84 ---
[id number] [facility]. [place] [address] [facility]. [place], [place] [address] [id number] I MR#: [id number] Acc #: [id number] NAME: NANNETTE CARCAMO : 1945 SEX: F STUDY DATE/TIME: 12/02/2016 8:18 UNIT: C5B ROOM: 556 STUDY DESCRIPTION: US LE Veins Complete Ash Stdy Attending Physician: Alayna Sauer M.D. Ordering Physician: Helen Mcdonnell M.D. Primary Care Physician: Bekah Cervantes M.D. MEDICAL IMAGING REPORT This report is preliminary unless electronic signature is present EXAM Bilateral lower extremity venous duplex 12/02/2016. HISTORY Bilateral lower extremity edema for 1 month. Evaluate for deep vein thrombosis. TECHNIQUE Venous ultrasound examination of both lower extremities was performed using grayscale, spectral Doppler and color flow Doppler imaging. FINDINGS The examination is negative. There is no evidence of deep venous thrombus from the groin to the lower calf bilaterally. Visualized greater saphenous veins are also patent. IMPRESSION Negative examination. No evidence of lower extremity deep venous thrombosis. Dictated by... Mahesh Owens M.D. THIS IS AN ELECTRONICALLY VERIFIED REPORT Mahesh Owens M.D. at 12/02/2016 5:03 PM JO-ANN/jack TD: 12/02/2016 12:20 JOB #: [id number] MEDICAL IMAGING REPORT Page 1 of 1 COPY
[~2016-12-01 16:00] MED LIST changes: +ATORVASTATIN CA10 MG PO; +BONIVA150 MG PO; +COREG6.25 M1 PO; +DULOXETINE HCL60 M1 PO; +IMDUR-ER30 MG PO; +IRON325 MG PO; +MULTI VITAMIN1 EACH PO; +PANTOPRAZOLE SO40 MG PO; +POTASSIUM CHLO10 MEQ PO
[2016-12-01 17:11] LABS: BASOPHIL% 0.6 % (0-2.5); EOSINOPHIL# 0.1 X10e3 (0-0.7); EOSINOPHIL% 1.7 % (0.0-7.0); HEMATOCRIT 41.8 % (35.0-45.0); HEMOGLOBIN 13.6 gm/dL (12.0-16.0); LYMPHOCYTE# 2.3 X10e3 (1.0-3.5); LYMPHOCYTE% 27.5 % (17.0-45.0); MEAN CELL VOLUME 87.4 FL (83-96); MEAN CORPUSCULAR HEMOGLOBIN 28.5 PG (28-34); MEAN CORPUSCULAR HGB CONC 32.6 g/dL (30-36); MEAN PLATELET VOLUME 9.6 FL (6.5-11.5); MONOCYTE# 0.7 X10e3 (0-1.0); NEUTROPHIL% 61.2 % (40-75); PLATELET COUNT 155 X10e3 (140-420); RED BLOOD COUNT 4.79 X10e (3.90-5.30); WHITE BLOOD COUNT 8.3 X10e3 (4.0-10.5)
[2016-12-01 17:16] LABS: DIFF IND NO
[2016-12-01 17:24] LABS: INR 1.1; PARTIAL THROMBOPLASTIN TIME 25.8 SECONDS (23.5-31.3); PROTHROMBIN TIME (PATIENT) 11.8 SECONDS (10.0-11.7)
[2016-12-01 17:31] LABS: POC - CKMB <1.0 ng/mL (0.0-7.9); POC - TROPONIN <0.05 ng/mL (<=0.05)
[2016-12-01 17:31] LABS: ALBUMIN SERUM 3.3 g/dL (3.5-5.0); BILIRUBIN, DIRECT 0.1 mg/dL (0.0-0.2); BILIRUBIN,INDIRECT 0.3 mg/dL (0.0-0.9); BILIRUBIN,TOTAL 0.4 mg/dL (0.2-2.0); BUN/CREATININE RATIO 13.33; CREATININE SERUM 0.9 mg/dL (0.6-1.4); GLOM FILT RATE Estimated 65.3 mL/min (>60); POTASSIUM 3.7 mmol/L (3.5-5.1); PROTEIN TOTAL SERUM 6.3 g/dL (6.0-8.3)
[2016-12-01 19:32] LABS: POC - CKMB <1.0 ng/mL (0.0-7.9); POC - TROPONIN <0.05 ng/mL (<=0.05)
[2016-12-01] MEDS ORDERED: CYMBALTA PO (23:04)
[2016-12-01] MEDS ORDERED: CALCIUM MAGNES1 EACH PO (23:05)
[2016-12-01] MEDS ORDERED: COREG6.25 MG PO (23:05)
[2016-12-01] MEDS ORDERED: K-DUR10 MEQ PO (23:06)
[2016-12-01] MEDS ORDERED: VITAMIN B122500 MC1 SUBQ (23:07)
[2016-12-02] MEDS ORDERED: IMDUR PO (02:27)
[2016-12-02 03:10] LABS: BASOPHIL% 0.4 % (0-2.5); EOSINOPHIL# 0.1 X10e3 (0-0.7); EOSINOPHIL% 1.6 % (0.0-7.0); HEMATOCRIT 41.9 % (35.0-45.0); HEMOGLOBIN 13.6 gm/dL (12.0-16.0); LYMPHOCYTE# 2.3 X10e3 (1.0-3.5); MEAN CELL VOLUME 87.8 FL (83-96); MEAN CORPUSCULAR HEMOGLOBIN 28.5 PG (28-34); MEAN CORPUSCULAR HGB CONC 32.5 g/dL (30-36); MEAN PLATELET VOLUME 9.1 FL (6.5-11.5); MONOCYTE# 0.7 X10e3 (0-1.0); MONOCYTE% 8.3 % (3.0-12.0); NEUTROPHIL# 4.8 X10e3 (1.5-7.1); NEUTROPHIL% 60.7 % (40-75); PLATELET COUNT 142 X10e3 (140-420); RED BLOOD COUNT 4.77 X10e (3.90-5.30); WHITE BLOOD COUNT 7.9 X10e3 (4.0-10.5)
[2016-12-02 03:11] LABS: DIFF IND NO
[2016-12-02 03:34] LABS: CK TOTAL 43 IU/L (26-140)
[2016-12-02 03:40] LABS: CALCIUM SERUM 8.4 mg/dL (8.4-10.2); CREATININE SERUM 0.8 mg/dL (0.6-1.4); GLOM FILT RATE Estimated 75.3 mL/min (>60); POTASSIUM 3.6 mmol/L (3.5-5.1)
[2016-12-02] MEDS ORDERED: DULOXETINE HCL60 MG PO (11:26)
[2016-12-02] MEDS ORDERED: ADVIL200 M1 PO (11:31)
[2016-12-02] MEDS ORDERED: ASPIRIN81 M2 PO (11:32)
[2016-12-02] MEDS ORDERED: LIPITOR20 MG PO (11:56)
[2016-12-02 12:42] LABS: CK TOTAL 37 IU/L (26-140)
== END 2016-12-02 16:55 | disposition home or self-care (01) ==
LOC: CED 16:00 → C5B 23:15 → CEDOF 23:15 → CED 23:21 → C5B 23:21 → CEDOF 12-02 01:38 → C5B 12-02 06:24
PROVIDERS: Internal Medicine; Nurse Practitioner; Physician Assistant
DX: R07.89 Other chest pain (principal); I25.10 Atherosclerotic heart disease of native coronary artery without angina pectoris; I10 Essential (primary) hypertension; E11.9 Type 2 diabetes mellitus without complications; Z79.84 Long term (current) use of oral hypoglycemic drugs; E78.5 Hyperlipidemia, unspecified; K76.0 Fatty (change of) liver, not elsewhere classified; F31.9 Bipolar disorder, unspecified; F41.8 Other specified anxiety disorders; M94.0 Chondrocostal junction syndrome [Tietze]; I77.89 Other specified disorders of arteries and arterioles; F03.90 Unspecified dementia, unspecified severity, without behavioral disturbance, psychotic disturbance, mood disturbance, and anxiety; Z79.899 Other long term (current) drug therapy; Z82.49 Family history of ischemic heart disease and other diseases of the circulatory system; Z90.710 Acquired absence of both cervix and uterus; Z90.49 Acquired absence of other specified parts of digestive tract; Z96.642 Presence of left artificial hip joint; Z91.041 Radiographic dye allergy status
CPT/HCPCS: 36415; 71260; 74177; 80048; 80076; 82550; 82553; 82947; 84484; 85025; 85610; 85730; 93005; 93970; 94760; 96374; 96375; 99285; G0378; J1200; J1815; J2270; J2405; Q9967

== ENCOUNTER 2017-01-25 17:57 | Emergency (ER) | payer OTHER ==
[~2017-01-25] VITALS: Ht 162.6 cm; Wt 86.2 kg
--- NOTE | ~2017-01-25 | CR72 ---
[facility] A Service of [facility] RADIOLOGY TEXT RESULTS PATIENT: NANNETTE CARCAMO LOCATION: [facility] : [birth year] UNIT #: [id number] AGE: [address]: Eric Sales MD SEX: F ORDER DR: [id number] [facility] [address] [facility]. [place], [place] [address] [id number] MR#: [id number] Acc #: [id number] NAME: NANNETTE CARCAMO : 1945 SEX: F STUDY DATE/TIME: 01/25/2017 20:33 UNIT: [facility] ROOM: STUDY DESCRIPTION: CR Chest Single View Portable Attending Physician: Eric Sales M.D. Ordering Physician: Eric Sales M.D. Primary Care Physician: Bekah Cervantes M.D. MEDICAL IMAGING REPORT This report is preliminary unless electronic signature is present EXAM Portable chest HISTORY Shortness of air. Cough and weakness for 2 weeks. FINDINGS Mild hyperinflation of both lungs. Cardiac size and pulmonary vascularity are within normal limits. No airspace infiltrates or effusions. Old healed lateral right upper rib fractures. Mild right upper thoracic curve. IMPRESSION No acute findings. Dictated by... Christoph Pedersen M.D. THIS IS AN ELECTRONICALLY VERIFIED REPORT Christoph Pedersen M.D. at 01/26/2017 11:25 PM KODAK/miranda TD: 01/26/2017 03:45 JOB #: [id number] MEDICAL IMAGING REPORT Page 1 of 1 COPY
--- NOTE | ~2017-01-25 | EKG ---
PATIENT: NANNETTE CARCAMO UNIT #: [id number] Ventricular Rate: 68 BPM Atrial Rate: 68 BPM P-R Interval: 146 ms QRS Duration: 80 ms Q-T Interval: 444 ms QTC Calculation(Bezet): 472 ms P [place]: 48 degrees Calculated R [place]: -29 degrees Calculated T [place]: 57 degrees Diagnosis Line: Normal sinus rhythm Diagnosis Line: Low voltage QRS Diagnosis Line: Non Specific ST Changes- Abnormality Diagnosis Line: Borderline ECG Diagnosis Line: When compared with ECG of 01-DEC-2016 16:08, Diagnosis Line: No significant change was found Diagnosis Line: Confirmed by JOSE LOPEZ MD ([id number]) on Diagnosis Line: 01/25/2017 10:54:59 PM INTERPRETING MD: MAYE
[~2017-01-25 17:57] MED LIST changes: +ADVIL200 M1 PO; +CALCIUM MAGNES1 EACH PO; +COREG6.25 MG PO; +DULOXETINE HCL60 MG PO; +IMDUR PO; +K-DUR10 MEQ PO; +LIPITOR20 MG PO; +VITAMIN B122500 MC1 SUBQ
[2017-01-25 19:46] LABS: BASOPHIL# 0.1 X10e3 (0-0.3); BASOPHIL% 0.5 % (0-2.5); EOSINOPHIL# 0.2 X10e3 (0-0.7); EOSINOPHIL% 2.2 % (0.0-7.0); HEMATOCRIT 44.4 % (35.0-45.0); HEMOGLOBIN 14.7 gm/dL (12.0-16.0); LYMPHOCYTE# 2.8 X10e3 (1.0-3.5); LYMPHOCYTE% 28.8 % (17.0-45.0); MEAN CELL VOLUME 86.8 FL (83-96); MEAN CORPUSCULAR HEMOGLOBIN 28.7 PG (28-34); MEAN CORPUSCULAR HGB CONC 33.1 g/dL (30-36); MEAN PLATELET VOLUME 9.9 FL (6.5-11.5); MONOCYTE# 0.8 X10e3 (0-1.0); MONOCYTE% 8.8 % (3.0-12.0); NEUTROPHIL# 5.8 X10e3 (1.5-7.1); NEUTROPHIL% 59.7 % (40-75); PLATELET COUNT 173 X10e3 (140-420); RED BLOOD COUNT 5.12 X10e (3.90-5.30); RED CELL DISTRIBUTION WIDTH 14.2 % (11.0-15.5); WHITE BLOOD COUNT 9.6 X10e3 (4.0-10.5)
[2017-01-25 19:47] LABS: DIFF IND NO
[2017-01-25 20:13] LABS: ALBUMIN SERUM 3.8 g/dL (3.5-5.0); BILIRUBIN, DIRECT 0.2 mg/dL (0.0-0.2); BILIRUBIN,INDIRECT 0.8 mg/dL (0.0-0.9); CALCIUM SERUM 9.2 mg/dL (8.4-10.2); GLOM FILT RATE Estimated 57.5 mL/min (>60); POTASSIUM 3.2 mmol/L (3.5-5.1); PROTEIN TOTAL SERUM 7.1 g/dL (6.0-8.3)
[2017-01-25 20:35] LABS: URINE SOURCE CLEAN CATCH
[2017-01-25 20:37] LABS: POC - CKMB <1.0 ng/mL (0.0-7.9); POC - TROPONIN <0.05 ng/mL (<=0.05)
[2017-01-25 20:41] LABS: URINE APPEARANCE CLEAR; URINE BLOOD NEG (NEG); URINE COLOR DK YELLOW; URINE GLUCOSE NEG (NEG); URINE KETONE TRACE (NEG); URINE LEUKOCYTE ESTERASE 2+ (NEG); URINE NITRATE NEG (NEG); URINE PROTEIN NEG (NEG); URINE SPECIFIC GRAVITY 1.023 (1.003-1.035)
[2017-01-25 20:44] LABS: CULTURE INDICATED? YES; URINE BACTERIA AUWI NEG (NEGATIVE); URINE SQUAMOUS EPITHELIAL CELL OCC /[HPF]
[2017-01-25 20:45] LABS: URINE BILIRUBIN POS (NEG)
== END 2017-01-25 21:49 | disposition home or self-care (01) ==
LOC: CED 17:57
PROVIDERS: Emergency Medicine
DX: T67.5XXA Heat exhaustion, unspecified, initial encounter (principal); Z91.040 Latex allergy status; Z88.8 Allergy status to other drugs, medicaments and biological substances
CPT/HCPCS: 36415; 71010; 80048; 80076; 81003; 82550; 82553; 84484; 85025; 87086; 93005; 99284